=== PATIENT | female | born 1975 | race Caucasian/White ===

== ENCOUNTER 2025-03-11 15:45 | Observation (INO) | payer BC, OTHER ==
[2025-03-11] MEDS: 50% Dextrose in Water 50 ML Syringe IV PRN (16:09)
[2025-03-11] MEDS: 50% Dextrose in Water 50 ML Syringe ONE (16:10)
[2025-03-11 16:13] LABS: HEMATOCRIT 34.7 % (33.0-47.0); HEMOGLOBIN 11.7 g/dL (12.0-16.0); MEAN CORPUSCULAR HEMOGLOBIN 27.7 pg (26.0-32.0); MEAN CORPUSCULAR HGB CONC 33.7 g/dL (32.0-36.0); MEAN CORPUSCULAR VOLUME 82.2 fL (78.0-93.0); PLATELET COUNT,PLT 371 x10^3/uL (130-400); RED BLOOD CELL COUNT 4.22 x10^6/uL (4.00-5.50)
[2025-03-11 16:15] LABS: WHITE BLOOD CELL COUNT,WBC 25.4 x10^3/uL (4.0-10.0)
[2025-03-11] MEDS: Dextrose 5% in Water 1,000 ML IV SCH (16:15)
[2025-03-11 16:19] LABS: BAND PERCENT MAN 5 % (0-6); LYMPHOCYTES ABSOLUTE MAN 1.5 x10^3/uL (1.0-4.8); LYMPHOCYTES PERCENT MAN 6 % (25-50); MONOCYTES PERCENT MAN 8 % (2-11); NEUTROPHILS ABSOLUTE MAN 21.8 x10^3/uL (1.8-7.7); SEG NEUTROPHILS PERCENT MAN 81 % (50-80)
[2025-03-11 16:20] LABS: PLATELET COUNT ESTIMATE ADEQUATE; STOMATOCYTES 1+ SLIGHT
[2025-03-11 16:28] LABS: A/G RATIO 0.74; ALANINE AMINOTRANSFERASE,ALT 30 U/L (14-59); ALBUMIN 3.1 g/dL (3.4-5.0); ALKALINE PHOSPHATASE 139 U/L (46-116); ASPARTATE AMNIOTRANSFERASE,AST 21 U/L (15-37); BILIRUBIN TOTAL 0.3 mg/dL (0.2-1.0); BLOOD UREA NITROGEN,BUN 23 mg/dL (7-18); CALCIUM 8.2 mg/dL (8.5-10.1); CARBON DIOXIDE,CO2 28 mmol/L (21-32); CHLORIDE,CL 106 mmol/L (98-107); CREATININE 1.2 mg/dL (0.55-1.02); MAGNESIUM 1.9 mg/dL (1.8-2.4); POTASSIUM,K 3.5 mmol/L (3.5-5.1); PROTEIN TOTAL,TP 7.3 g/dL (6.4-8.2); SODIUM,NA 141 mmol/L (136-145)
[2025-03-11 16:30] LABS: ANION GAP 10.5 mmol/L (5-15); ESTIMATED GFR 56 mL/min (>=60); GLUCOSE RANDOM 32 mg/dL (70-99)
[2025-03-11] MEDS: Metoclopramide 10 MG/2 ML SDV IVPUSH ONE (16:45)
[2025-03-11] MEDS ORDERED: Morphine 2 MG/ML SYRINGE IVPUSH PRN (17:52)
[2025-03-11] MEDS ORDERED: Acetaminophen/HYDROcodone 325-5 MG Tab PO PRN (17:52)
[2025-03-11] MEDS ORDERED: Melatonin 3 MG Tab PO PRN (17:52)
[2025-03-11] MEDS ORDERED: 50% Dextrose in Water 50 ML Syringe IVPUSH PRN (18:27)
[2025-03-11] MEDS ORDERED: Glucagon,Human Recombinant 1 MG Vial IM PRN (18:27)
[2025-03-11] MEDS ORDERED: Dextrose 5% in Water 1,000 ML IV SCH (18:30)
[2025-03-11] MEDS: Ondansetron 4 MG/2 ML SDV IV PRN (19:03)
[2025-03-11] MEDS: cefTRIAXone 1 GM Vial IVPUSH SCH (19:04)
[2025-03-11] MEDS: Insulin Lispro 100 Units/ML 3 ML Vial SUBCUT SCH (21:02)
[2025-03-11 21:26] LABS: APPEARANCE,URINE CLOUDY (CLEAR); BILIRUBIN,URINE NEGATIVE (NEGATIVE); COLOR,URINE YELLOW (YELLOW); GLUCOSE,URINE >=1000 mg/dL (NEGATIVE); KETONES,URINE 15 mg/dL (NEGATIVE); LEUKOCYTE ESTERASE,URINE NEGATIVE (NEGATIVE); NITRITE,URINE NEGATIVE (NEGATIVE); OCCULT BLOOD,URINE MODERATE (NEGATIVE); PH,URINE 5.5 (5.0-8.0); PROTEIN,URINE >=300 mg/dL (NEGATIVE); UROBILINOGEN,URINE 0.2 EU/dL (0.2)
[2025-03-11 21:49] LABS: AMORPHOUS SEDIMENT,URINE FEW; BACTERIA,URINE MODERATE /HPF (NOT SEEN); MUCUS,URINE MODERATE /LPF (NOT SEEN); SQUAMOUS EPITHELIAL CELLS,UR MODERATE /HPF (NOT SEEN)
[2025-03-12] MEDS: Acetaminophen 325 MG Tab PO PRN (06:23)
[2025-03-12] MEDS ORDERED: Insulin Lispro 100 Units/ML 3 ML Vial SUBCUT SCH (08:00)
[2025-03-12] MEDS: Ondansetron 4 MG Tab.DIS PO PRN (09:44)
[2025-03-12] MEDS: Cephalexin 500 MG Cap PO ONE (10:11)
[2025-03-12] MEDS: Take Home: Cephalexin 250 MG Cap, 4 Cap Pack PO ONE (11:24)
== END 2025-03-12 11:30 | disposition home or self-care (01) ==
LOC: VM.ED 15:45 → VM.MS 17:11
PROVIDERS: ADMIT Family Medicine; ATTEND Family Medicine
DX: E10.649 Type 1 diabetes mellitus with hypoglycemia without coma (principal); E10.319 Type 1 diabetes mellitus with unspecified diabetic retinopathy without macular edema; Z79.4 Long term (current) use of insulin; Z79.899 Other long term (current) drug therapy; Z88.8 Allergy status to other drugs, medicaments and biological substances
CPT/HCPCS: 36415; 80053; 81001; 82947; 83605; 83735; 84443; 85025; 96361; 96374; 96375; 99223; 99239; 99284; 99285-25; A9270-GY; G0378; J0696; J1815-GY; J2405; J2765; J7070; Q3014